=== PATIENT | male | born 1975 | race Caucasian/White ===

== ENCOUNTER 2020-12-25 21:27 | Inpatient (IN) | payer OTHER ==
[~2020-12-25] VITALS: Ht 167.6 cm; Wt 100.6 kg
[2020-12-25] MEDS ORDERED: PAMA50CA PO (21:52)
[2020-12-25] MEDS ORDERED: VALS40TA4 PO ×2 (22:00)
[2020-12-25] MEDS ORDERED: METO25 PO (22:00)
[2020-12-25] MEDS ORDERED: DIAZ2 PO (22:00)
[2020-12-25] MEDS ORDERED: PANT-31 PO (22:00)
[2020-12-25] MEDS ORDERED: ATOR20TA86 PO (22:00)
[2020-12-25] MEDS ORDERED: AMIO200T68 PO (22:00)
[2020-12-25 22:23] LABS: BASOPHILS % (AUTO) 0.5 % (0.0-2.0); HEMATOCRIT 40.3 % (41-53); HEMOGLOBIN 13.1 g/dL (13.5-17.5); LYMPHOCYTES # (AUTO) 2.6 K/uL (1.0-4.8); LYMPHOCYTES % (AUTO) 29.5 % (22.0-44.0); MEAN CORPUSCULAR HEMOGLOBIN 29.6 pg (26.0-34.0); MEAN CORPUSCULAR HGB CONC 32.5 G/dL (31.0-37.0); MEAN CORPUSCULAR VOLUME 91 fL (80-100); MONOCYTES # (AUTO) 0.9 K/uL (0.1-1.0); MONOCYTES % (AUTO) 10.1 % (2.0-9.0); NEUTROPHILS # (AUTO) 5.2 K/uL (1.8-7.7); NEUTROPHILS % (AUTO) 58.9 % (40.0-70.0); PLATELET COUNT (AUTO) 251 K/uL (150-450); RED BLOOD CELL COUNT(AUTO) 4.42 MIL/uL (4.50-5.90); RED CELL DISTRIBUTION WIDTH 14.1 % (11.5-14.5)
[2020-12-25 22:32] LABS: ANION GAP 11 mmol/L (8-16); CALCIUM, TOTAL 8.9 mg/dL (8.8-10.5); CARBON DIOXIDE 25 mmol/L (22-29); CHLORIDE 102 mmol/L (98-107); CREATININE 1.08 mg/dL (0.60-1.30); GLOMERULAR FILTR. RATE CALC > 60 mL/min (>60); GLUCOSE,RANDOM 98 mg/dL (70-110); POTASSIUM 3.6 mmol/L (3.5-5.1); SODIUM SERUM 138 mmol/L (136-145); UREA NITROGEN, BLOOD 22 mg/dL (7-18)
[2020-12-25 22:36] LABS: GLUCOSE,POINT OF CARE 96 MG/DL (70-110)
[2020-12-25 22:41] LABS: ALANINE AMINOTRANSFERASE 38 U/L (12-78); ALBUMIN 3.8 g/dL (3.4-5.0); ALKALINE PHOSPHATASE 79 U/L (46-116); ASPARTATE AMINOTRANSFERASE 19 U/L (15-37); BILIRUBIN,TOTAL 0.4 mg/dL (0.1-1.0); TOTAL PROTEIN, SERUM 7.1 g/dL (6.4-8.2)
[2020-12-25 23:25] LABS: INR 1.9 (0.9-1.1); PROTHROMBIN TIME 19.4 SEC (9.4-11.6)
[2020-12-25 23:37] LABS: CREATINE KINASE, TOTAL ONLY 66 U/L (39-308)
[2020-12-26] MEDS ORDERED: ACETAMINOPHEN 325 MG TABLET PO PRN ×3 (00:15→11:45)
[2020-12-26] MEDS ORDERED: ONDANSETRON HCL 4 MG/2 ML VIAL IVP PRN ×2 (00:15→01:45)
[2020-12-26 00:59] LABS: COVID AG,FIA SOURCE NASOPHARYNGEAL
[2020-12-26 01:05] VITALS: BP 136/77
[2020-12-26] MEDS ORDERED: IPRATROPIUM BROMIDE 0.5 MG/2.5 ML NEB SOLUTION NEB PRN (01:45)
[2020-12-26] MEDS ORDERED: MAGNESIUM HYDROXIDE SUSPENSION 30 ML UDCUP PO PRN (01:45)
[2020-12-26] MEDS ORDERED: ZOLPIDEM TARTRATE 10 MG TABLET PO PRN (01:45)
[2020-12-26 04:16] VITALS: BP 133/79
[2020-12-26] MEDS ORDERED: NITROGLYCERIN 2% (1 GM=INCH) PACKET TP SCH (06:00)
[2020-12-26 07:03] VITALS: BP 101/67
[2020-12-26] MEDS: METOPROLOL TARTRATE 25 MG TABLET PO SCH ×2 (08:03→20:19)
[2020-12-26] MEDS: OMEPRAZOLE 10 MG CAPSULE PO SCH (08:03)
[2020-12-26] MEDS: AMIODARONE HCL 200 MG TABLET PO SCH (08:03)
[2020-12-26] MEDS ORDERED: DOCUSATE SODIUM 100 MG CAPSULE PO SCH (09:00)
[2020-12-26] MEDS ORDERED: FUROSEMIDE 20 MG TABLET PO SCH (09:00)
[2020-12-26] MEDS ORDERED: ASPIRIN 81 MG CHEWABLE TABLET PO SCH (09:00)
[2020-12-26 10:33] VITALS: BP 122/72
[2020-12-26] MEDS ORDERED: *CLINICAL-WARFARIN SODIUM DOSING CLINICAL ONE (11:45)
[2020-12-26] MEDS ORDERED: WARFARIN SODIUM-INR 2.0-3.0-RX DOSING PER PROTOCOL PO PRN (12:15)
[2020-12-26 15:21] VITALS: BP 134/82
[2020-12-26] MEDS ORDERED: WARFARIN SODIUM 2 MG TABLET PO ONE (17:00)
[2020-12-26 20:10] VITALS: BP 112/65
[2020-12-26] MEDS: ATORVASTATIN CALCIUM 20 MG TABLET PO SCH (20:19)
[2020-12-26] MEDS: DOCUSATE SODIUM 100 MG CAPSULE PO SCH (20:20)
[2020-12-27 00:10] VITALS: BP 100/65
[2020-12-27 04:15] VITALS: BP 96/71
[2020-12-27 07:03] LABS: INR 1.2 (0.9-1.1); PROTHROMBIN TIME 12.4 SEC (9.4-11.6)
[2020-12-27 07:35] VITALS: BP 112/68
[2020-12-27] MEDS: OMEPRAZOLE 10 MG CAPSULE PO SCH (08:27)
[2020-12-27] MEDS: METOPROLOL TARTRATE 25 MG TABLET PO SCH ×2 (08:27→20:16)
[2020-12-27] MEDS: AMIODARONE HCL 200 MG TABLET PO SCH (08:27)
[2020-12-27] MEDS: FAMOTIDINE 20 MG TABLET PO SCH (08:27)
[2020-12-27] MEDS: DOCUSATE SODIUM 100 MG CAPSULE PO SCH ×2 (08:28→20:15)
[2020-12-27 12:16] VITALS: BP 107/73
[2020-12-27] MEDS: ENOXAPARIN SODIUM 100 MG/ML PF SYRINGE SQ SCH ×2 (12:18→20:16)
[2020-12-27 15:34] VITALS: BP 92/61
[2020-12-27] MEDS ORDERED: WARFARIN SODIUM 7.5 MG TABLET PO ONE (17:00)
[2020-12-27 19:49] VITALS: BP 98/58
[2020-12-27] MEDS: ATORVASTATIN CALCIUM 20 MG TABLET PO SCH (20:15)
[2020-12-28 00:19] VITALS: BP 96/64
[2020-12-28 04:18] VITALS: BP 107/71
[2020-12-28 07:06] VITALS: BP 119/76
[2020-12-28 07:57] LABS: INR 1.3 (0.9-1.1); PROTHROMBIN TIME 13.9 SEC (9.4-11.6)
[2020-12-28] MEDS: OMEPRAZOLE 10 MG CAPSULE PO SCH (08:38)
[2020-12-28] MEDS: ENOXAPARIN SODIUM 100 MG/ML PF SYRINGE SQ SCH (08:38)
[2020-12-28] MEDS: DOCUSATE SODIUM 100 MG CAPSULE PO SCH (08:38)
[2020-12-28] MEDS: FAMOTIDINE 20 MG TABLET PO SCH (08:38)
[2020-12-28] MEDS: AMIODARONE HCL 200 MG TABLET PO SCH (09:00)
[2020-12-28 11:18] VITALS: BP 122/74
[2020-12-28] MEDS ORDERED: FAMO20 PO (12:48)
[2020-12-28] MEDS ORDERED: ASPI81TA87 PO (12:49)
[2020-12-28] MEDS ORDERED: ACET-2247 PO (12:50)
[2020-12-28] MEDS ORDERED: MOM30 PO (12:51)
[2020-12-28] MEDS ORDERED: WARFARIN SODIUM 7.5 MG TABLET PO ONE (17:00)
[2020-12-28] MEDS ORDERED: METOPROLOL TARTRATE 25 MG TABLET PO SCH (21:00)
[2020-12-29] MEDS ORDERED: ASPIRIN 81 MG CHEWABLE TABLET PO SCH (09:00)
== END 2020-12-28 14:00 | DRG 313 ==
LOC: EMS 21:27 → 5S 12-26 00:57
PROVIDERS: ADMIT Internal Medicine; ATTEND Internal Medicine
DX: R07.89 Other chest pain (principal); E11.9 Type 2 diabetes mellitus without complications; E78.00 Pure hypercholesterolemia, unspecified; I10 Essential (primary) hypertension; F17.210 Nicotine dependence, cigarettes, uncomplicated; E66.9 Obesity, unspecified; Z68.35 Body mass index [BMI] 35.0-35.9, adult; I48.91 Unspecified atrial fibrillation; Z95.810 Presence of automatic (implantable) cardiac defibrillator; Z95.3 Presence of xenogenic heart valve; I25.10 Atherosclerotic heart disease of native coronary artery without angina pectoris; I35.0 Nonrheumatic aortic (valve) stenosis; Z20.822 Contact with and (suspected) exposure to COVID-19
CPT/HCPCS: 71045; 80053; 80061; 82550; 82962; 83880; 84484; 85025; 85610; 85730; 87426; 93005; 93306; 99285; J1650; 36415-L1; 36415-TC